=== PATIENT | male | born 1980 | race Caucasian/White ===

== ENCOUNTER 2017-09-17 23:07 | Emergency (ER) | payer SELFPAY ==
[~2017-09-17] VITALS: Ht 190.5 cm; Wt 138.3 kg
[2017-09-17 23:08] VITALS: BP 160/94
[2017-09-17] MEDS ORDERED: MAALOX/HYOSCYAMINE/LIDOCAINE 45 ML BTL PO ONE (23:30)
== END 2017-09-18 01:19 | disposition left against medical advice (07) ==
LOC: ED 09-18 01:13
DX: K92.2 Gastrointestinal hemorrhage, unspecified (principal)
CPT/HCPCS: 99281